=== PATIENT | female | born 1960 | race Caucasian/White ===

== ENCOUNTER 2017-03-19 15:14 | Emergency (ER) | payer BC ==
[2017-03-19 16:12] VITALS: BP 144/73
--- NOTE | 2017-03-19 16:51 | UC ---
Throat Pain/Nasal Pito HPI - HPI Summary HPI Summary: pt presents with c/o "loss of voice" X 1.5 weeks. c/o nasal congestion, PND and raspy voice. - History of Current Complaint Chief Complaint: UCRespiratory Stated Complaint: NO VOICE, COUGH Time Seen by Provider: 03/19/17 16:29 Hx Obtained From: Patient ?: No Onset/Duration: Gradual Onset, Lasting Days - 15 Severity: Mild Cough: Nonproductive Associated Signs & Symptoms: Positive: Other - nasal congestion Related History: Seasonal Allergies - unsire - Allergies/Home Medications Allergies/Adverse Reactions: Allergies Allergy/AdvReac Type Severity Reaction Status Date / Time No Known Allergies Allergy Verified 03/19/17 16:12 Home Medications: Home Medications Cyclobenzaprine (NF) [Cyclobenzaprine 5 MG (NF)] 5 mg PO BEDTIME 03/19/17 [ History Confirmed 03/19/17] Duloxetine HCl 40 mg PO DAILY 03/19/17 [History Confirmed 03/19/17] Famotidine TAB 40 MG(NF) [Pepcid TAB 40 MG(NF)] 40 mg PO DAILY 03/19/17 [ History Confirmed 03/19/17] Lisinopril [Lisinopril 2.5 MG-] 5 mg PO DAILY 03/19/17 [History Confirmed ] Nabumetone TAB* [Relafen TAB*] 750 mg PO BID 03/19/17 [History Confirmed ] Omeprazole CAP* [Prilosec CAP* 20 MG] 20 mg PO BID 03/19/17 [History Confirmed 03/19/17] Simvastatin [Zocor 5 MG-] 5 mg PO DAILY 03/19/17 [History Confirmed 03/19/17] PMH/Surg Hx/FS Hx/Imm Hx Previously Healthy: Yes Cardiovascular History: Cardiac Disease, Hypertension - Surgical History Surgical History: Yes Surgery Procedure, Year, and Place: HYSTERECTOMY 1983. ACL REPAIR LEFT KNEE 2008. [facility] - Family History Known Family History: Positive: Cardiac Disease - Social History Alcohol Use: None Substance Use Type: None Smoking Status (MU): Former Smoker Type: Cigarettes Amount Used/How Often: 1/2 ppd Length of Time of Smoking/Using Tobacco: 30 yrs When Did the Patient Quit Smoking/Using Tobacco: 2013 Household Exposure Type: Cigarettes Review of Systems Constitutional: Negative Skin: Negative Eyes: Negative ENT: Other - nasal congestion, "loss of voice" PND Respiratory: Cough Cardiovascular: Negative Gastrointestinal: Negative Genitourinary: Negative Motor: Negative Neurovascular: Negative Musculoskeletal: Negative Neurological: Negative Psychological: Negative All Other Systems Reviewed And Are Negative: Yes Physical Exam Triage Information Reviewed: Yes Appearance: Well-Appearing Vital Signs: Initial Vital Signs Temp 97.6 F 03/19/17 16:05 Pulse 84 03/19/17 16:05 Resp 16 03/19/17 16:05 BP 144/73 03/19/17 16:05 Pulse Ox 99 03/19/17 16:05 Eye Exam: Normal ENT Exam: Other ENT: Positive: Pharyngeal erythema, Nasal congestion, Other: - PND Neck exam: Normal Respiratory Exam: Normal Musculoskeletal Exam: Normal Neurological Exam: Normal Psychological Exam: Normal Skin Exam: Normal Throat Pain/Nasal Course/Dx - Differential Dx/Diagnosis Differential Diagnosis/HQI/PQRI: Laryngitis, URI Provider Diagnoses: laryngitis. seasonal allergies Discharge - Discharge Plan Condition: Stable Disposition: HOME Prescriptions: Fexofenadine (NF) [Khadra 180 (NF)] 180 mg PO DAILY #14 tab predniSONE TAB* [Deltasone TAB*] 30 mg PO DAILY #9 tab Patient Education Materials: Laryngitis (ED), Allergies (ED) Referrals: Brenna Schneider MD [Primary Care Provider] - If Needed
== END 2017-03-19 16:59 | disposition home or self-care (01) ==
LOC: UCCORT 15:14
DX: J04.0 Acute laryngitis (principal); J30.2 Other seasonal allergic rhinitis; I10 Essential (primary) hypertension; Z90.710 Acquired absence of both cervix and uterus; Z90.49 Acquired absence of other specified parts of digestive tract; Z87.891 Personal history of nicotine dependence
CPT/HCPCS: 99202; G0463